=== PATIENT | male | born 1960 | race Hispanic/Latino ===

== ENCOUNTER 2024-04-29 14:56 | Outpatient (RCR) | payer BC ==
[~2024-04-29 14:56] MED LIST: AMLODIPINE BESYL5 MG PO; ASPIRIN81 MG PO; HYDROCHLOROTHIA25 MG PO; METOPROLOL SUCC50 MG PO
== END 2024-05-07 ==
LOC: PT 14:56
PROVIDERS: ATTEND Physician Assistant
DX: Z47.1 Aftercare following joint replacement surgery (principal); Z96.652 Presence of left artificial knee joint; M25.562 Pain in left knee; M25.662 Stiffness of left knee, not elsewhere classified; M62.81 Muscle weakness (generalized)